=== PATIENT | male | born 1985 | race Caucasian/White ===

== ENCOUNTER 2019-09-02 07:52 | Emergency (ER) | payer OTHER, SELFPAY ==
[2019-09-02 07:54] VITALS: BP 157/104; PULSE 81; RESP 16; TEMP 36.9; O2SAT 100; BMI 33.5
--- NOTE | 2019-09-02 08:08 | VDLE_ITS ---
Reason For Study: pain RIGHT LEFT GSV is normal. CFV is compressible, spontaneous, phasic, CFV is compressible, spontaneous, phasic, competent, and demonstrates normal competent and demonstrates normal augmentation. augmentation. FV is compressible, spontaneous, phasic, competent and demonstrates normal augmentation. POP V is compressible, spontaneous, phasic, competent and demonstrates normal augmentation. T/P Trunk is compressible. PTV is compressible. RT PerV is compressible. Procedure Exam performed portable in ED. The exam was diagnostic. A preliminary report was called and/or faxed to Dr. Shaw. Interpretation Summary There is no evidence of right lower extremity deep vein thrombosis. Right great saphenous vein appears patent and compressible segmentally. Patent and compressible left common femoral vein Ordering Physician: Gordo Shaw Performed By: Yossi Acharya RVT
--- NOTE | 2019-09-02 08:08 | EKG12_ITS ---
Test Reason : CP Blood Pressure : / mmHG Vent. Rate : 071 BPM Atrial Rate : 071 BPM P-R Int : 184 ms QRS Dur : 088 ms QT Int : 388 ms P-R-T Axes : 030 -08 013 degrees QTc Int : 421 ms Normal sinus rhythm Normal ECG Confirmed by RASHEL FONTANEZ, NANDO ([id number]), editor trade journal CHEYANNE KHAN ([id number]) on 09/03/2019 10:04:57 AM Referred By: URMILA Confirmed By:NANDO KISER MD
[2019-09-02] MEDS: 0.9% Normal Saline 1,000 ML 1000 ML IV (08:16)
[2019-09-02 08:17] VITALS: BP 157/104; PULSE 81; RESP 16; TEMP 36.9; O2SAT 100
[2019-09-02 08:22] LABS: Absolute Neutrophil Count 4.7 X10^3/uL (2.0-7.7); Basophil# 0.05 X10^3/uL; Basophil% 0.5 % (0-1); Eosinophils% 4.2 % (0-5); Hematocrit 44.4 % (40-54); Hemoglobin 15.4 g/dL (13.0-16.5); Lymphocyte % 39.6 % (19-41); Mean Corp Hgb Conc 34.7 g/dL (32-36); Mean Corpuscular Hgb 29.2 pg (27.0-32.0); Mean Corpuscular Volume 84.3 fL (80-94); Mean Platelet Vol. 10.3 fl (6.2-12.0); Monocyte# 0.64 X10^3/uL; Monocyte% 6.7 % (0-10); NRBC Flagged by Analyzer 0 % (0-5); Neutrophil # 4.69 X10^3/uL (2.7-7.7); Neutrophil % 48.8 % (47-70); Platelet Count 160 K/mm3 (150-450); RBC Distribution Width CV 12.3 % (11.6-14.6); RBC Distribution Width SD 37.2 fl (35.1-43.9); Red Blood Count 5.27 M/mm3 (4.6-6.2); White Blood Count 9.6 K/mm3 (4.4-11.0)
[2019-09-02 08:23] VITALS: O2SAT 100
--- NOTE | 2019-09-02 08:30 | ED.DCSUM_ITS ---
- ER Visit Summary Date of Service: 09/02/19 Chief Complaint: Chest pain History of Present Illness: The patient is a 34 M with no primary care physician. He reports that for the past 2 days he has had intermittent chest pains last less than a minute at a time. He describes these as a pressure. Is 2 out of 10 at worst and is pain-free currently. This is brought on by smoking. He denies any pain from exertion or movement. Nothing makes this better. Just resolves on its own. There is no radiation of pain. No associated nausea, vomiting, diaphoresis, or shortness of breath. Patient reports that he has pain in his right calf that began 2 days ago as well. He does have a family history of DVT. No personal history of DVT. No recent travel. He reports the pain in his calf is 1 out of 10 in severity. Physical Examination: Vitals: Stable. Afebrile. General: Well-nourished and well-developed. Head: Normocephalic atraumatic. Neck: Supple, no lymphadenopathy. No JVD. Nontender. Cardiovascular: Regular rate and rhythm. No murmurs. Respiratory: No respiratory distress. Clear to auscultation bilaterally. Abdominal: Soft, nontender, nondistended, normal bowel sounds. No guarding, rebound, or peritoneal signs. Back: Nontender. Extremities: Nontender, no edema. Skin: Normal color, no rash. Neurologic: Alert and oriented ?3. Cranial nerves II through XII are intact. Normal strength and sensation. Psych: Normal affect. Test Results: Right lower extremity Doppler is negative. EKG is sinus at 71 with no acute changes. Chest x-ray shows no acute disease. CBC is normal. Chem-7 is marked for a potassium of 3.4 and chloride of 109. Troponin is negative. D-dimer is negative. Emergency Department Course and Treatment: Patient is resting comfortably. He refused pain medications. Treatment Plan: Patient's pain is very atypical. His heart score is 1. He will be discharged with instructions to follow-up with Dr. miranda, who is next on list for no doc, in 1 week for another exam. Return to the emergency department for any worsening symptoms. Disposition: To home in improved and stable condition. Impression: 1. Atypical chest pain. 2. LEX score of 0. This note was generated with Dragon dictation software. It may contain incorrect words, spelling, and punctuation that were not noted in review of the chart pr ior to signing ED Disposition - Plan for ED Patient: Instructions: CHEST PAIN, Uncertain Cause Referrals: Elly Curry MD [STAFF PHYSICIAN] - 1 Week
[2019-09-02 08:33] LABS: D-Dimer Quantitative (DVT/PE) 0.37 FEU/ug/m (0.27-0.49)
--- NOTE | 2019-09-02 08:35 | RAD_ITS ---
STUDY: X-RAY CHEST REASON FOR EXAM: Male, 34 years old. CHEST PAIN. RIGHT LEG FEELS NUMB AND TINGLY AT TIMES. TECHNIQUE: Single AP portable view of the chest. COMPARISON: None. FINDINGS: EKG electrodes are seen. The lungs are clear and expanded. There is no demonstrated pleural abnormality. Normal size heart. Normal mediastinum and chrissy. Normal visualized pulmonary arteries. Normal visualized aortic arch and descending thoracic aorta. Normal visualized thoracic spine. Normal visualized ribs, clavicles, and shoulders. There is no demonstrated abnormality of the visualized soft tissue structures of the upper abdomen. RAD/Chest 1 View (Portable) IMPRESSION: Normal x-ray examination of the chest. Electronically Signed: Chadd Ramos, at 9:05 EST , Service support ,
[2019-09-02 08:39] LABS: Anion Gap 4 (5-15); BUN 16 mg/dL (7-18); BUN/Creat Ratio 15.2 RATIO (10-20); Calcium,Total 8.7 mg/dL (8.5-10.1); Chloride 109 mmol/L (98-107); Creatinine, Serum 1.05 mg/dL (0.70-1.30); EST Glomerular Filtration Rate 87 mL/min (>60); Est Glom Filt Rate - Afr Amer 105 mL/min (>60); Estimated Creatinine Clearance 107.57 ml/min; Glucose 95 mg/dL (74-106); Potassium 3.4 mmol/L (3.5-5.1); Sodium Level 142 mmol/L (136-145)
[2019-09-02 09:08] VITALS: BP 127/66; PULSE 59; RESP 16; O2SAT 97
== END 2019-09-02 09:12 | disposition home or self-care (01) ==
LOC: ED 09:09
PROVIDERS: Emergency Provider Emergency Medicine
DX: R07.89 Other chest pain (principal); M79.661 Pain in right lower leg; M54.9 Dorsalgia, unspecified; R51 Headache; F17.200 Nicotine dependence, unspecified, uncomplicated
CPT/HCPCS: 71045; 80048; 84484; 85025; 85379; 93005; 93971; 96360; 99284; J7030; A4216

== ENCOUNTER 2021-08-16 03:37 | Emergency (ER) | payer BC, SELFPAY ==
[2021-08-16 03:38] VITALS: BP 148/93; PULSE 90; RESP 18; TEMP 36.8; O2SAT 99; BMI 36.2
--- NOTE | 2021-08-16 04:30 | RAD_ITS ---
STUDY: X-RAY CHEST REASON FOR EXAM: Male, 36 years old. Chest pain TECHNIQUE: Single AP portable view of the chest. COMPARISON: September 02, 2020 chest x-ray FINDINGS: The lungs are clear and expanded. There is no demonstrated pleural abnormality. Normal size heart. Normal mediastinum and chrissy. Normal visualized pulmonary arteries. Normal visualized aortic arch and descending thoracic aorta. Normal visualized thoracic spine. Normal visualized ribs, clavicles, and shoulders. There is no demonstrated abnormality of the visualized soft tissue structures of the upper abdomen. RAD/Chest 1 View (Portable) IMPRESSION: Normal x-ray examination of the chest. Electronically Signed: Mine Bazan MD at 5:14 EST Tel , Service support ,
--- NOTE | 2021-08-16 04:30 | EKG12_ITS ---
Test Reason : CP Blood Pressure : / mmHG Vent. Rate : 081 BPM Atrial Rate : 081 BPM P-R Int : 184 ms QRS Dur : 082 ms QT Int : 370 ms P-R-T Axes : 030 -10 -24 degrees QTc Int : 429 ms Normal sinus rhythm Nonspecific ST abnormality Abnormal ECG Confirmed by RASHEL FONTANEZ, NANDO ([id number]), school photograph editor JON AGUERO ([id number]) on 08/16/2021 11:29:52 AM Referred By: NEGIN Confirmed By:NANDO KISER MD
[2021-08-16 04:37] LABS: Absolute Lymphocyte Count 3.08 X10^3/uL (0.83-4.51); Absolute Neutrophil Count 4.3 X10^3/uL (2.0-7.7); Basophil# 0.03 X10^3/uL; Basophil% 0.4 % (0-1); Eosinophil# 0.29 X10^3/uL; Eosinophils% 3.4 % (0-5); Hematocrit 44.6 % (40-54); Lymphocyte # 3.08 X10^3/ul (0.83-4.51); Lymphocyte % 36.4 % (19-41); Mean Corp Hgb Conc 33.6 g/dL (32-36); Mean Corpuscular Hgb 28.2 pg (27.0-32.0); Monocyte# 0.72 X10^3/uL; Monocyte% 8.5 % (0-10); NRBC Flagged by Analyzer 0 % (0-5); Neutrophil # 4.33 X10^3/uL (2.7-7.7); Neutrophil % 51.1 % (47-70); Platelet Count 184 K/mm3 (150-450); RBC Distribution Width CV 12.5 % (11.6-14.6); RBC Distribution Width SD 37.6 fl (35.1-43.9); Red Blood Count 5.31 M/mm3 (4.6-6.2); White Blood Count 8.5 K/mm3 (4.4-11.0)
[2021-08-16 04:59] LABS: Anion Gap 6 (5-15); BUN 23 mg/dL (7-18); BUN/Creat Ratio 25.5 RATIO (10-20); Calcium,Total 8.5 mg/dL (8.5-10.1); Chloride 108 mmol/L (98-107); EST Glomerular Filtration Rate 102 mL/min (>60); Est Glom Filt Rate - Afr Amer 124 mL/min (>60); Estimated Creatinine Clearance 123.18 ml/min; Glucose 109 mg/dL (74-106); Potassium 3.6 mmol/L (3.5-5.1); Sodium Level 140 mmol/L (136-145); Troponin-I HS 4 pg/mL (3.0-78.0)
--- NOTE | 2021-08-16 05:41 | EDS_ITS ---
HPI History of Present Illness Chief Complaint: Chest Pain Narrative Narrative: Patient is a 36-year-old male who states that he noticed some left- sided chest discomfort over the past 1 day. He denies any nausea vomiting diaphoresis or shortness of breath associated with this. He denies any family history of cardiac disease at a young age. He denies any illicit drug use or excessive stimulant use. He also denies any recent travel surgery or history of DVT/PE. He states he was on the Internet googled chest pain. He states he thought that he could be having a heart attack or fluid around his heart and this became concerning for him and therefore he presents for evaluation. [facility] Medical History no medical history Home Medications NK 09/02/19 [History Last Taken Unknown] Allergy/AdvReac Type Severity Reaction Status Date / Time No Known Allergies Allergy Verified 08/16/21 03:44 Social History Smoking Status: Current every day smoker tobacco type: cigarettes ROS ROS ED Constitutional Constitutional ED: Denies chills or fever(s) ENT ENT ED: Denies sore throat Cardiovascular Cardiovascular: Reports chest pain; Denies palpitations or racing heartbeat Respiratory/Chest Respiratory/Chest: Denies cough or dyspnea Gastrointestinal Gastrointestinal: Denies abdominal pain, diarrhea, nausea or vomiting Genitourinary Genitourinary ED: Denies dysuria Musculoskeletal Musculoskeletal: Denies myalgias Integumentary Denies rash Neurologic Neurologic: Denies headache(s) Psychiatric Psychiatric: Reports anxiety Hematologic/Lymphatic Hematologic/Lymphatic: Denies easy bleeding or easy bruising EXAM Physical Exam Const Vital Signs: 08/16/21 03:38 08/16/21 03:45 08/16/21 04:30 Temperature 98.2 F Temperature Source Oral Pulse Rate 90 Respiratory Rate 18 Respiratory Effort Normal Respiratory Pattern Normal Blood Pressure 148/93 H Blood Pressure Mean 111 Pulse Ox 99 Oxygen Delivery Method Room Air Nasal Cannula Positive well nourished and well developed General Appearance ED: well developed HEENT Reports moist mucous membranes Eyes PERRL and EOMs intact bilaterally Neck supple Chest Wall palpation of chest normal Chest Narrative: No bony deformity or crepitance of the chest wall Resp normal respiratory effort and clear to auscultation bilaterally Cardio regular rate and regular rhythm Rate: other Other Details: Radial pulses are plus 2 out of 4 bilaterally are equal and symmetric GI normal to inspection, nondistended, normoactive bowel sounds, non-tender, non- distended and no masses GI Narrative: No voluntary guarding or rigidity no pulsatile mass Auscultation: normoactive bowel sounds Palpation: soft Extremity normal to inspection Extremity Narrative: No asymmetric edema no pitting edema negative Homans' sign bilaterally Neuro oriented x3 and CN's II-XII intact bilaterally Sensorium / Orientation: alert Motor Exam: strength 5/5 throughout Psych Psych Narrative: Patient has a nervous/anxious affect Mood & Affect: anxious Skin no rashes or lesions noted MDM MDM MDM Narrative Medical decision making narrative: Patient presented the ER hypertensive but otherwise with stable vitals. He is low risk for cardiac disease and does not report any type of nausea vomiting diaphoresis or shortness of breath associated with this. However as he does not see a family doctor and is hypertensive elected perform basic cardiac work-up. Work-up revealed no acute findings. I do not feel he needs a D-dimer as he does not have pleuritic chest pain he has no risk factors for DVT and is not tachycardic. Therefore at this time as patient's work-up is negative and he is low risk for coronary disease I do not feel there is need for further work-up and patient can be discharged home Lab Data Attestation: I reviewed the patient's lab results. Labs: Laboratory Results - last 24 hr 08/16/21 08/16/21 04:00 04:00 WBC 8.5 RBC 5.31 Hgb 15.0 Hct 44.6 MCV 84.0 MCH 28.2 MCHC 33.6 RDW Std Deviation 37.6 RDW Coeff of [place] 12.5 Plt Count 184 MPV 11.0 Immature Gran % (Auto) 0.200 Neut % (Auto) 51.1 Lymph % (Auto) 36.4 [place] % (Auto) 8.5 Eos % (Auto) 3.4 Baso % (Auto) 0.4 Absolute Neuts (auto) 4.3 Absolute Lymphs (auto) 3.08 Nucleated RBC % 0 Sodium 140 Potassium 3.6 Chloride 108 H Carbon Dioxide 26.0 Anion Gap 6 BUN 23 H Creatinine 0.90 Estim Creat Clear Calc 123.18 Est GFR (MDRD) Af Amer 124 Est GFR (MDRD) Non-Af 102 BUN/Creatinine Ratio 25.5 H Glucose 109 H Calcium 8.5 Troponin I High Sens 4 Radiography Diagnostic Testing: Clinical Impression(s) from Imaging Studies Chest X-Ray 08/16/21 04:30 IMPRESSION: Normal x-ray examination of the chest. Electronically Signed: Mine Bazan MD at 5:14 EST Tel , Service support , Discharge Plan Triage Chief Complaint: Chest Pain ED Provider: Ethan Nath Dx/Rx/DC Orders Clinical Impression: Acute nonspecific chest pain with low risk of coronary artery disease Instructions: ED Chest Pain, Uncertain Cause Prescriptions: No Action NK RF: 0 Primary Care Provider: Care Physician,No Primary Referrals: Montana Quiñonez DO [STAFF PHYSICIAN] - 1 Week Care Physician,No Primary [Primary Care Provider] - Disposition Disposition: Home, Self Care Discharge Date/Time: 08/16/21 06:30
[2021-08-16 06:27] VITALS: BP 150/110; PULSE 78; RESP 18; TEMP 36.8; O2SAT 96
[2021-08-16 06:30] VITALS: RESP 16
== END 2021-08-16 06:30 | disposition home or self-care (01) ==
PROVIDERS: Emergency Provider Emergency Medicine; Visit Provider Emergency Medicine
DX: R07.89 Other chest pain (principal); F17.210 Nicotine dependence, cigarettes, uncomplicated
CPT/HCPCS: 71045; 80048; 84484; 85025; 93005; 99284